=== PATIENT | female | born 1990 | race American Indian/Alaskan Native ===

== ENCOUNTER 2018-12-29 12:26 | Emergency (ER) | payer MEDICAID, OTHER ==
[2018-12-29 12:34] VITALS: BP 133/88
--- NOTE | 2018-12-29 12:38 | Emergency Department Report ---
Blank Doc - Documentation Documentation: 28 y old presents to ED cc of right sided pelvic pain and blood with urine x 2 days ago state LMP 11/14/18, no bleed today states appt with aid tomorrow labs, US ordered. ACC evaluate
--- NOTE | 2018-12-29 13:06 | Emergency Department Report ---
ED HPI - General Chief complaint: Vaginal Bleeding Stated complaint: PREG BLEEDING Time Seen by Provider: 12/29/18 12:32 Source: patient Mode of arrival: Ambulatory Limitations: No Limitations - History of Present Illness Initial comments: This is a 31-year-old female nontoxic, well nourished in appearance, no acute signs of distress presents to the ED with c/o of vaginal bleeding and pelvic pain x1 day. Patient stated yesterday she noticed some spotting this morning x3 occasions and primarily only when she wipes after the restroom. P atient denies any abdominal pain. Patient denies any vaginal discharge or foul odor. Patient denies any nausea, vomiting, chest pain, shortness of breathe, fever, chills, headache, stiff neck, numbness, tingling. Patient denies any urinary symptoms. Patient denies any allergies or PMH. MD Complaint: vaginal bleeding, other (pelvic pain) -: days(s) (1) Location: pelvis Radiation: none Severity: mild Severity scale (0 -10): 3 Quality: cramping, aching Consistency: constant Improves with: none Worsens with: none Associated symptoms: vaginal bleeding. denies: nausea/vomiting, vaginal discharge, abdominal pain, dysuria, headache, vision changes, malaise, dysparuenia, rash, seizure, shortness of breath, syncope, weakness Vaginal bleeding: light :: Yes Pre- care: none - Related Data Home Medications Medication Instructions Recorded Confirmed Last Taken Pnv,Calcium 72/Iron/Folic Acid 1 tab PO DAILY 11/21/15 11/30/15 1 Day Ago [Pnv Plus Multivit Tab] ~11/29/15 Previous Rx's Medication Instructions Recorded Last Taken Type Ibuprofen [Motrin 800 MG tab] 800 mg PO TID PRN #30 tablet 11/30/15 Unknown Rx oxyCODONE /ACETAMINOPHEN [Percocet 1 - 2 tab PO Q4HR PRN #30 tablet 11/30/15 Unknown Rx 5/325 mg] Docusate Sodium [Colace] 100 mg PO BID PRN #60 capsule 12/02/15 Unknown Rx Polyethylene Glycol 3350 [Miralax 1 gm PO BID PRN #14 powd.pack 09/17/18 Unknown Rx 3350] metroNIDAZOLE [Flagyl] 500 mg PO Q12HR 10 Days #20 tab 09/17/18 Unknown Rx Acetaminophen 500 mg PO Q8H PRN #20 tablet 12/29/18 Unknown Rx 21/Iron Fu/Folic Acid 1 each PO DAILY #30 tablet 12/29/18 Unknown Rx [ Complete Caplet] Allergies Allergy/AdvReac Type Severity Reaction Status Date / Time No Known Allergies Allergy Verified 11/21/15 18:00 ED Review of Systems ROS: Stated complaint: PREG BLEEDING Other details as noted in HPI Constitutional: denies: chills, fever Eyes: denies: eye pain, eye discharge, vision change ENT: denies: ear pain, throat pain Respiratory: denies: cough, shortness of breath, wheezing Cardiovascular: denies: chest pain, palpitations Endocrine: no symptoms reported Gastrointestinal: other (pelvic pain). denies: abdominal pain, nausea, diarrhea Genitourinary: abnormal menses. denies: urgency, dysuria, discharge Musculoskeletal: denies: back pain, joint swelling, arthralgia Skin: denies: rash, lesions Neurological: denies: headache, weakness, paresthesias Psychiatric: denies: anxiety, depression Hematological/Lymphatic: denies: easy bleeding, easy bruising ED Past Medical Hx - Past Medical History Hx Hypertension: No Hx Congestive Heart Failure: No Hx Diabetes: No Hx Deep Vein Thrombosis: No Hx Renal Disease: No Hx Sickle Cell Disease: No Hx Seizures: No Hx Asthma: Yes (no present meds) Hx COPD: No Hx HIV: No - Surgical History Past Surgical History?: Yes Additional Surgical History: c section X 3 - Social History Smoking Status: Former Smoker Substance Use Type: None - Medications Home Medications: Home Medications Medication Instructions Recorded Confirmed Last Taken Type Pnv,Calcium 72/Iron/Folic Acid 1 tab PO DAILY 11/21/15 11/30/15 1 Day Ago History [Pnv Plus Multivit Tab] ~11/29/15 Ibuprofen [Motrin 800 MG tab] 800 mg PO TID PRN #30 tablet 11/30/15 Unknown Rx oxyCODONE /ACETAMINOPHEN [Percocet 1 - 2 tab PO Q4HR PRN #30 tablet 11/30/15 Unknown Rx 5/325 mg] Docusate Sodium [Colace] 100 mg PO BID PRN #60 capsule 12/02/15 Unknown Rx Polyethylene Glycol 3350 [Miralax 1 gm PO BID PRN #14 powd.pack 09/17/18 Unknown Rx 3350] metroNIDAZOLE [Flagyl] 500 mg PO Q12HR 10 Days #20 tab 09/17/18 Unknown Rx Acetaminophen 500 mg PO Q8H PRN #20 tablet 12/29/18 Unknown Rx 21/Iron Fu/Folic Acid 1 each PO DAILY #30 tablet 12/29/18 Unknown Rx [ Complete Caplet] ED Physical Exam - General Limitations: No Limitations General appearance: alert, in no apparent distress - Head Head exam: Present: atraumatic, normocephalic - Eye Eye exam: Present: normal appearance - Neck Neck exam: Present: normal inspection, full ROM - Respiratory Respiratory exam: Present: normal lung sounds bilaterally. Absent: respiratory distress, wheezes, rales, rhonchi, stridor, chest wall tenderness, accessory muscle use, decreased breath sounds, prolonged expiratory - Cardiovascular Cardiovascular Exam: Present: regular rate, normal rhythm, normal heart sounds. Absent: bradycardia, tachycardia, irregular rhythm, systolic murmur, diastolic murmur, rubs, gallop - GI/Abdominal GI/Abdominal exam: Present: soft, normal bowel sounds. Absent: distended, tenderness, guarding, rebound, rigid, diminished bowel sounds - Extremities Exam Extremities exam: Present: normal inspection, full ROM - Back Exam Back exam: Present: normal inspection, full ROM - Neurological Exam Neurological exam: Present: alert, oriented X3 - Psychiatric Psychiatric exam: Present: normal affect, normal mood - Skin Skin exam: Present: warm, dry, intact, normal color. Absent: rash ED Course Vital Signs 12/29/18 12:32 Temperature 97.9 F Pulse Rate 87 Respiratory 18 Rate Blood Pressure 133/88 O2 Sat by Pulse 99 Oximetry - Reevaluation(s) Reevaluation #1: 12/29/18 13:31 Patient is speaking in full sentences with no signs of distress noted. - Consultations Consultation #1: 12/29/18 15:21 Patient has been consulted with Keira Simsbuggy ladle tender [place] [facility] [place] about patient history, physical exam, and anti-M anybodies and stated patient can be discharged with follow-up. ED Medical Decision Making - Lab Data Result diagrams: 12/29/18 12:59 - Medical Decision Making This is a 28-year-old female presents with threatened miscarriage. Patient is stable and was examined by me. Normal abdominal exam. US OB obtained and dictated by the radiologist. Ua obtained. Quantative serum test obtained. Patient notified of the US report with no questions noted by the patient. Patient was instructed f/u with [facility] in 2 days to follow up with a [facility] or to emergency room for a reevaluation of serum quantative test with possible ultrasound. RH factor positive. Labs within normal limits. Patient was given strict precautions and education on ectopic . At time of discharge, the patient does not seem toxic or ill in appearance. No acute signs of distress noted. Patient agrees to discharge treatment plan of care. No further questions noted by the patient. Critical care attestation.: If time is entered above; I have spent that time in minutes in the direct care of this critically ill patient, excluding procedure time. ED Disposition Clinical Impression: Threatened miscarriage Disposition: DC- TO HOME OR SELFCARE Is pt being admited?: No Does the pt Need Aspirin: No Condition: Stable Instructions: Threatened Miscarriage (ED) Additional Instructions: Follow-up with a OBGYN doctor in 2 days or if symptoms worsen and continue return to emergency room as soon as possible. Prescriptions: Acetaminophen 500 mg PO Q8H PRN #20 tablet PRN Reason: Pain , Severe (7-10) 21/Iron Fu/Folic Acid [ Complete Caplet] 1 each PO DAILY #30 tablet Referrals: PRIMARY CAREMD [Primary Care Provider] - 3-5 Days TERESA VENTURA MD [Staff Physician] - 3-5 Days [facility] [Provider Group] - 3-5 Days Forms: Work/School Release Form(ED)
[2018-12-29 13:35] LABS: Basophils # (Auto) 0.1 K/mm3 (0.0-0.1); Basophils % (Auto) 0.9 % (0.0-1.8); Eosinophils # (Auto) 0.3 K/mm3 (0.0-0.4); Eosinophils % (Auto) 3.9 % (0.0-4.3); Hematocrit 37.4 % (30.3-42.9); Hemoglobin 12.4 gm/dl (10.1-14.3); Lymphocytes # (Auto) 2.1 K/mm3 (1.2-5.4); Lymphocytes % (Auto) 27.2 % (13.4-35.0); Mean Corpuscular HGB Conc 33 % (30-34); Mean Corpuscular Volume 81 fl (79-97); Monocytes # (Auto) 0.7 K/mm3 (0.0-0.8); Platelet Count 355 K/mm3 (140-440); Red Blood Count 4.64 M/mm3 (3.65-5.03)
[2018-12-29 13:45] LABS: Bilirubin,Urine NEG (Negative); Blood,Urine NEG (Negative); Color,Urine Yellow (Yellow); Mucus,Urine 1+ /HPF; Protein,Urine <15 mg/dL mg/dL (Negative)
--- NOTE | 2018-12-29 15:50 | Ultrasound Report ---
PROCEDURE: US OB <= 14 WEEKS FETUS HISTORY: pelv pain FINDINGS: Real-time ultrasound of the pelvis was performed by transabdominal and endovaginal techniqu e. These images demonstrate a hypoechoic structure in the endometrium which could represent an early ges tational sac at approximately 5 weeks and 5 days gestational age. No pole is seen. A yolk sac i s probably present. Follow-up ultrasound is recommended as clinically indicated. The right ovary measures 2.3 x 1.9 x 2.0 cm and contains a cyst measuring 1.0 x 0.5 x 1.2 cm. The left ovary measures 3.1 x 1.1 x 2.3 cm and appears unremarkable. IMPRESSION: Hypoechoic structure in endometrium, likely gestational sac, with probable yolk sac. No f etal pole is yet seen. Follow-up ultrasound is recommended Normal ovaries This document is electronically signed by Franck Majano MD., December 29 2018 03:48:45 PM ET
--- NOTE | 2018-12-29 15:51 | Ultrasound Report ---
PROCEDURE: US OB TRANSVAGINAL TECHNIQUE: HISTORY: pelv pain COMPARISONS: FINDINGS: Real-time ultrasound of the pelvis was performed by transabdominal and endovaginal techniqu e. These images demonstrate a hypoechoic structure in the endometrium which could represent an early ges tational sac at approximately 5 weeks and 5 days gestational age. No pole is seen. A yolk sac i s probably present. Follow-up ultrasound is recommended as clinically indicated. The right ovary measures 2.3 x 1.9 x 2.0 cm and contains a cyst measuring 1.0 x 0.5 x 1.2 cm. The left ovary measures 3.1 x 1.1 x 2.3 cm and appears unremarkable. IMPRESSION: Hypoechoic structure in endometrium, likely gestational sac, with probable yolk sac. No f etal pole is yet seen. Follow-up ultrasound is recommended Normal ovaries This document is electronically signed by Franck Majano MD., December 29 2018 03:48:57 PM ET
== END 2018-12-29 16:31 | disposition home or self-care (01) ==
LOC: ED 12:26
DX: O20.0 Threatened abortion (principal); O99.511 Diseases of the respiratory system complicating pregnancy, first trimester; J45.909 Unspecified asthma, uncomplicated; Z87.891 Personal history of nicotine dependence; Z3A.01 Less than 8 weeks gestation of pregnancy
CPT/HCPCS: 36415; 76801; 76817; 81001; 84702; 85025; 86850; 86870; 86900; 86901; 99284

== ENCOUNTER 2019-05-23 09:10 | Outpatient (CLI) | payer MEDICAID ==
[2019-05-23] MEDS ORDERED: LACTATED RINGERS 500 ML IV ONE (09:43)
[2019-05-23] MEDS ORDERED: LACTATED RINGERS 1,000 ML ONE (10:19)
[2019-05-23 10:27] LABS: Bacteria,Urine 2+ /HPF (Negative); Bilirubin,Urine NEG (Negative); Blood,Urine NEG (Negative); Color,Urine Yellow (Yellow); Mucus,Urine 3+ /HPF; Urobilinogen,Urine < 2.0 mg/dL (<2.0)
[2019-05-23] MEDS ORDERED: LACTATED RINGERS 1,000 ML IV ONE (11:00)
[2019-05-23] MEDS ORDERED: VISTARIL PO PRN (12:00)
[2019-05-23 12:10] VITALS: BP 122/75
== END 2019-05-23 12:15 | disposition home or self-care (01) ==
LOC: TRG 09:10
PROVIDERS: ATTEND Obstetrics & Gynecology
DX: O62.9 Abnormality of forces of labor, unspecified (principal); O99.512 Diseases of the respiratory system complicating pregnancy, second trimester; J45.909 Unspecified asthma, uncomplicated; Z3A.26 26 weeks gestation of pregnancy
CPT/HCPCS: 59025; 81001; 96360; J7120; Q0177

== ENCOUNTER 2019-08-14 05:17 | Inpatient (IN) | payer MEDICAID ==
--- NOTE | 2019-08-13 18:51 | History and Physical Report ---
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 of genital herpes: no Rash, Viral, or Febrile illness since last LMP? no Varicella/Chicken Pox Status: Previous Disease Genetic History Congenital Heart Defect: Mom: no Dad: no Geovani Disease: Mom: no Dad: no Thalassemia Mom: no Dad: no Neural Tube Defect Mom: no Dad: no Down's Syndrome Mom: no Dad: no Sammy-Sachs Mom: no Dad: no Sickle Cell Disease/Trait Mom: no Dad: no Hemophilia Mom: no Dad: no Muscular Dystrophy Mom: no Dad: no Cystic Fibrosis Mom: no Dad: no Gemma Chorea Mom: no Dad: no Mental Retardation Mom: no Dad: no Fragile X Mom: no Dad: no Other Genetic/Chromosomal Disorder Mom: no Dad: no Child w/other defect Mom: no Dad: no Enviromental Exposures Xray Exposure: no Medication, drug, or alcohol use since LMP: no Chemical/Other Exposure: no Exposure to Cat Liter: no Hx of Parvovirus (Fifth Disease): no Occupational Exposure to Children: none Active Medications: None Current Allergies (reviewed today): No known allergies Problem # 1: Maternal care for low transverse scar from previous delivery ([id number]) Her updated medication list for this problem includes: Rx 1 Tabs ( vit-fe fumarate-fa tabs) ..... One po q day Consent reviewed and signed . Laparotomy explained to patient. The risks and alternatives for this surgery were reviewed with the patient. She was informed of possible bleeding, infection, injury to bowel, bladder, ureters or other adjacent organs. The patient was instructed/informed the following: The normal length of hospital stay for this procedure. Nothing to eat or drink after midnight the evening prior to surgery. The usual discomforts associated with this procedure were detailed. Proper use of pain medicines was reviewed. Patient was given ample opportunity to have all her questions answered before signing informed consent. Problem # 2: Sterilization counseling (ICD-V25.09) ([id number]) Risks of regret emphasized. Permanent and irreversible condition explained to patient. Pt verbalized understanding. Consent reviewed The risks and alternatives to this surgery were reviewed with the patient. Infection precautions reviewed, pt to call for any signs or symptoms of infection. Patient given ample opportunity to have all her questions answered before signing informed consent. Patient informed of possible bleeding. 1%failure rate emphasized Past History - Obstetrical History Expected Date of Delivery: 08/21/19 Actual Gestation: 38 Week(s) 6 Day(s) : 3 Medications and Allergies Allergies Allergy/AdvReac Type Severity Reaction Status Date / Time No Known Allergies Allergy Verified 11/21/15 18:00 Home Medications Medication Instructions Recorded Confirmed Last Taken Type Pnv,Calcium 72/Iron/Folic Acid 1 tab PO DAILY 11/21/15 11/30/15 1 Day Ago History [Pnv Plus Multivit Tab] ~11/29/15 Ibuprofen [Motrin 800 MG tab] 800 mg PO TID PRN #30 tablet 11/30/15 Unknown Rx oxyCODONE /ACETAMINOPHEN [Percocet 1 - 2 tab PO Q4HR PRN #30 tablet 11/30/15 Unknown Rx 5/325 mg] Docusate Sodium [Colace] 100 mg PO BID PRN #60 capsule 12/02/15 Unknown Rx Polyethylene Glycol 3350 [Miralax 1 gm PO BID PRN #14 powd.pack 09/17/18 Unknown Rx 3350] metroNIDAZOLE [Flagyl] 500 mg PO Q12HR 10 Days #20 tab 09/17/18 Unknown Rx Acetaminophen 500 mg PO Q8H PRN #20 tablet 12/29/18 Unknown Rx 21/Iron Fu/Folic Acid 1 each PO DAILY #30 tablet 12/29/18 Unknown Rx [ Complete Caplet] Active Meds: Active Medications Carboprost Tromethamine (Hemabate) 250 mcg IM ONCE PRN PRN Reason: bleeding Citric Acid/Sodium Citrate (Bicitra) 30 ml PO ONCE ONE Stop: 08/14/19 06:31 Famotidine (Pepcid) 20 mg IV ONCE ONE Stop: 08/14/19 06:31 Oxytocin/Sodium Chloride (Pitocin/Ns 20 Unit/1000ml Drip) 20 units in 1,000 mls @ 0 mls/hr IV TITR BEBA Lactated Ringer's (Lactated Ringers) 1,000 mls @ 2,250 mls/hr IV PREOP BEBA Stop: 08/15/19 05:57 Cefazolin Sodium (Ancef/Sterile Water 2 Gm/20 Ml) 2 gm in 20 mls @ 80 mls/hr IV PREOP NR; Protocol Lidocaine/Prilocaine (Emla) 1 applic TP ONCE PRN PRN Reason: for strickland catheter insertion Methylergonovine Maleate (Methergine) 0.2 mg IM ONCE PRN PRN Reason: Bleeding Metoclopramide HCl (Reglan) 10 mg IV ONCE ONE Stop: 08/14/19 06:31 Misoprostol (Cytotec) 800 mcg TN ONCE PRN PRN Reason: bleeding Results All other labs normal. Assessment and Plan - Patient Problems (1) 39 weeks gestation of Status: Acute (2) Previous section Status: Acute (3) Sterilization Status: Acute
[~2019-08-14 05:17] MED LIST: METHYLERGONOVINE MALEATE 0.2 MG/ML VIAL IM PRN; miSOPROStol 100 MCG TAB PR PRN
[2019-08-14] MEDS ORDERED: ceFAZolin/Water 2 GM/20 ML 2 GM/20 ML SYRINGE IV NR (05:30)
[2019-08-14] MEDS ORDERED: OXYTOCIN 20 UNIT/1000ML DRIP 20 UNITS/1,000 ML BAG IV SCH ×2 (05:30→13:31)
[2019-08-14] MEDS ORDERED: EMLA CREAM 5 GM TP PRN (05:30)
[2019-08-14] MEDS: LACTATED RINGERS 1,000 ML IV SCH ×3 (06:05→12:40)
[2019-08-14] MEDS ORDERED: FAMOTIDINE 20 MG/2 ML INJ IV SCH (06:30)
[2019-08-14] MEDS ORDERED: METOCLOPRAMIDE 10 MG/2 ML INJ IV SCH (06:30)
[2019-08-14] MEDS ORDERED: BICITRA ORAL LIQD 30ML PO ONE (06:30)
[2019-08-14] MEDS ORDERED: CARBOPROST TROMETHAMINE 250 MCG/1 ML INJ IM PRN (07:00)
[2019-08-14 07:20] LABS: Hematocrit 30.6 % (30.3-42.9); Hemoglobin 9.9 gm/dl (10.1-14.3)
[2019-08-14 07:45] LABS: Mean Corpuscular HGB Conc 32 % (30-34); Mean Corpuscular Volume 77 fl (79-97); Platelet Count 218 K/mm3 (140-440); Red Blood Count 3.94 M/mm3 (3.65-5.03); Red Cell Distribution Width 14.5 % (13.2-15.2)
[2019-08-14] MEDS ORDERED: MIDAZOLAM 2 MG/2 ML INJ ONE (08:21)
[2019-08-14] MEDS ORDERED: KETAMINE/STERILE WATER 50 MG/ML SYRINGE ONE ×2 (08:21→09:13)
[2019-08-14] MEDS ORDERED: PHENYLEPHRINE/NS 1,000 MCG/10 ML SYRINGE (OR USE) IV ONE (08:30)
[2019-08-14] MEDS ORDERED: GLYCOPYRROLATE 0.4 MG/2 ML INJ ONE (08:30)
[2019-08-14] MEDS ORDERED: OXYTOCIN 10 UNIT/1 ML INJ ONE ×2 (08:43→08:44)
[2019-08-14] MEDS ORDERED: fentaNYL 100 MCG/2 ML INJ ONE ×2 (08:44→09:10)
[2019-08-14 09:48] LABS: Basophils % (Manual) 0 % (0.0-1.8); Total Cells Counted 100
[2019-08-14 09:49] LABS: Burr Cells Rare; Tear Drop Cells Rare
[2019-08-14 09:50] LABS: Hypochromasia 1+; Platelet Estimate Consistent w Auto
[2019-08-14] MEDS ORDERED: HYDROmorphone 1 MG/1 ML INJ ONE ×2 (09:53)
[2019-08-14] MEDS ORDERED: ONDANSETRON 4 MG/2 ML INJ IV PRN (10:07)
[2019-08-14] MEDS ORDERED: diphenhydrAMINE 50 MG/ML VIAL IV PRN (10:07)
[2019-08-14] MEDS ORDERED: HYDROmorphone 1 MG/1 ML INJ IV PRN (10:07)
--- NOTE | 2019-08-14 10:10 | Anesthesia Consultation ---
Anesthesia Consult and Med Hx Date of service: 08/14/19 - Airway Anesthetic Teeth Evaluation: Poor ROM Head & Neck: Adequate Mental/Hyoid Distance: Adequate Mallampati Class: Class II Intubation Access Assessment: Probably Good - Pulmonary Exam CTA: Yes - Cardiac Exam Cardiac Exam: RRR - Pre-Operative Health Status ASA Pre-Surgery Classification: ASA2 Proposed Anesthetic Plan: Spinal - Pre-Anesthesia Comment Pre-Anesthesia Comments: PSH: CSECTION X 4, NO ANESTHESIA COMPLICATIONS - Pulmonary Hx Smoking: Yes (stop 2018 1-2 cig/day) Hx Asthma: Yes (no present meds) Hx Respiratory Symptoms: No SOB: No COPD: No Home Oxygen Therapy: No Hx Pneumonia: Yes (2nd ) Hx Sleep Apnea: No - Cardiovascular System Hx Hypertension: No Hx Coronary Artery Disease: No Hx Heart Attack/AMI: No Hx Angina: No Hx Percutaneous Transluminal Coronary Angioplasty (PTCA): No Hx Cardia Arrhythmia: No Hx Pacemaker: No Hx Internal Defibrillator: No Hx Valvular Heart Disease: No Hx Heart Murmur: No Hx Peripheral Vascular Disease: No - Central Nervous System Hx Neuromuscular Disorder: No Hx Seizures: No CVA: No Hx Back Pain: No Hx Psychiatric Problems: No - Gastrointestinal Hx Ulcer: No Hx Gastroesophageal Reflux Disease: No - Endocrine Hx Renal Disease: No Hx End Stage Renal Disease: No Hx Cirrhosis: No Hx Liver Disease: No Hx Insulin Dependent Diabetes: No Hx Non-Insulin Dependent Diabetes: No Hx Thyroid Disease: No Hx Hypothyroidism: No Hx Hyperthyroidism: No - Hematic Hx Anemia: No Hx Sickle Cell Disease: No - Other Systems Hx Alcohol Use: No Hx Substance Use: No Hx Cancer: No Hx Obesity: No
--- NOTE | 2019-08-14 10:11 | Post Anesthesia Evaluation ---
- Post Anesthesia Evaluation Patient Participated: Yes Airway Patent: Yes Stable Respiratory Function: Yes Nausea/Vomiting: No Temp > 96.8F: Yes Pain Manageable: Yes Adequeate Hydration: Yes Anesthesia Complications: No Block Receding Appropriately: Yes Patient on Ventilator: No
--- NOTE | 2019-08-14 10:11 | Anesthesia Day of Surgery ---
Anesthesia Day of Surgery - Day of Surgery Patient Examined: Yes Patient H&P Reviewed: Yes Patient is NPO: Yes Beta Blockers: No Cardiac Clearance: No Pulmonary Clearance: No Dylan's Test: N/A
--- NOTE | 2019-08-14 10:24 | Post Operative Note ---
Pre-op diagnosis: IUP@39weeks, desires repeat C/S with sterilization Post-op diagnosis: other (same, extensive adhesions, mild uterine atony) Findings: liveborn, female [id number] 15oz; apg 05/09 Procedure: LTCS w/ (B) salpingectomy for sterilization Anesthesia: spinal Surgeon: LANDY LEMONS Estimated blood loss: other (900mL) Pathology: list (placenta) Specimen disposition: to lab Condition: stable Disposition: PACU
[2019-08-14] MEDS: HYDROmorphone 1 MG/1 ML INJ IV PRN ×2 (12:47→13:41)
[2019-08-14] MEDS ORDERED: PROMETHAZINE 25 MG RECT SUPP PR PRN (13:31)
[2019-08-14] MEDS ORDERED: D5W/LACTATED RINGERS 1,000 ML IV SCH (13:31)
[2019-08-14] MEDS ORDERED: LANOLIN/ZINC/DIMETHICONE (LANSINOH) 7 GM TP PRN (13:31)
[2019-08-14] MEDS ORDERED: ACETAMINOPHEN 650 MG RECT SUPP PR PRN (13:31)
[2019-08-14] MEDS ORDERED: MORPHINE 2 MG/1 ML INJ IV PRN (13:31)
[2019-08-14] MEDS ORDERED: NALOXONE 0.4 MG/1 ML INJ IV PRN (13:31)
[2019-08-14] MEDS ORDERED: ACETAMINOPHEN 325 MG TAB PO PRN (13:31)
[2019-08-14] MEDS ORDERED: WITCH HAZEL/ GLYCERIN PAD TP PRN (13:31)
--- NOTE | 2019-08-14 14:11 | Operative Report ---
Operative Report Operative Report: Date of procedure: 08/14/2019 Pre-operative diagnosis: 1. Intrauterine at 39 weeks 2. Previous delivery desires repeat 3. Desires sterilization by bilateral salpingectomy Post-operative diagnosis: 1. Intrauterine at 39 weeks 2. Previous delivery desires repeat 3. Desires sterilization by bilateral salpingectomy 4. Extensive pelvic adhesions 5. Uterine atony Procedure name(s): 1. Low transverse section 2. Bilateral salpingectomy 3. Lysis of pelvic adhesions Surgeon: Stephanie Powell MD University President: Mimi Marie CST Anesthesia: Spinal EBL: 900 mL Complications: None Findings: Patient with grossly normal uterus tubes and ovaries bilaterally. Female weight 6 lbs. 15 oz. 8 at 1 minute and 9 at 5 minutes Specimen(s): Fallopian tubes and placenta Procedure: Patient was taken to the OR where spinal anesthesia was placed. She was then placed in the left lateral tilt position and prepped and draped in usual sterile fashion. Timeout was performed. Once an appropriate level of anesthesia was noted, Pfannenstiel incision was made and extended to fascia which was incised and extended in the lateral direction. The overlying fascia was sharply dissected away from the underlying rectus muscles in the superior inferior direction. The midline within it bluntly. Dense adhesion of the uterus to the anterior right abdominal pelvic wall was encountered. Adhesion was released with cautery. The large Renee retractor was placed. The vesicouterine fold was incised with blunt dissection bladder flap was created. Bladder blade was placed. Then a transverse incision was made in the lower uterine segment and extended superior lateral direction with finger fractionation. Clear fluid was noted. The infant was delivered from the cephalic position with spontaneous cry and excellent tone, mouth and nose were bulb suctioned and the cord was doubly clamped and cut and was given to the resuscitation team present. [Cord blood was obtained.] The placenta was manually extracted. The uterus was exteriorized and cleaned of any further products of conception and placental tissue. Uterine atony was immediately recognized. She was given Methergine 0.2 mg IM, Pitocin 10 units IM and 30 units of the bolus. Manual uterine massage was performed. With these measures uterine atony resolved. The uterine incision was reapproximated using 0 Vicryl in a running interlocking stitch. Further suture 0 Vicryl in a running interlocking stitch was performed for hemostasis. There was a serosal defect on the uterus that was made hemostatic with 0 Vicryl in a running locking stitch. Once confirmation was obtained the patient proceed with sterilization by salpingectomy, the right tube was grasped with [place] And elevated and salpingectomy was performed. Once hemostasis was noted, the same procedure was performed on the left fallopian tube. Each tube was sent to pathology in separate specimen containers. Hemostasis was obtained with electrocoagulation and 3-0 Vicryl in a [id number] stitch. Once hemostasis was noted the uterus was allowed back in the pelvic cavity. Pelvis is irrigated with warm normal saline. Attention was turned to the adnexa where hemostasis was noted. Tisseel was applied on the operative riley. Surgicel was placed on the incision for hemostasis. Interceed was also placed to prevent adhesions. The bladder blade was removed. The Yesika retractor was removed. Once hemostasis was noted the fascia was reapproximated using 0 Vicryl in a simple running stitch. Once hemostasis was noted skin was reapproximated using 4-0 Vicryl on a Oscar needle in a subcuticular manner. Counts were correct 3. Clear yellow urine was noted to drain into the Lockett bag. Patient tolerated procedure well as taken recovery room in stable condition.
[2019-08-14] MEDS: MORPHINE 4 MG/1 ML INJ IV PRN ×2 (15:51→22:39)
[2019-08-14] MEDS: ceFAZolin/NS 1 GM/50 ML 1 GM/50 ML BAG IV SCH ×2 (15:55→23:50)
[2019-08-14] MEDS: ONDANSETRON 4 MG/2 ML INJ IV PRN ×2 (16:35→22:40)
[2019-08-14] MEDS: oxyCODONE /ACETAMINOPHEN 5-325MG TAB PO PRN (18:06)
[2019-08-14 21:41] LABS: Hematocrit 25.4 % (30.3-42.9); Hemoglobin 8.6 gm/dl (10.1-14.3)
[2019-08-14] MEDS: SIMETHICONE 80 MG CHEW TAB PO PRN (23:33)
[2019-08-15] MEDS: oxyCODONE /ACETAMINOPHEN 5-325MG TAB PO PRN (03:14)
--- NOTE | 2019-08-15 06:23 | Progress Note ---
Assessment and Plan - Patient Problems (1) delivery delivered Onset Date: ~08/14/19 Current Visit: No Status: Acute Plan to address problem: Called by RN that pt is in a level pain that appears exaggerated. Pt was not allowing fundal checks and other physical assessments. Pt refused to sit on the side of the bed. On my arrival pt had a delayed response to my arrival, refused to acknowledge my presence and did not respond to my questions. I did explain to the pt I would need to exam her and assess her abdomen and fundus. Abdomen does appear distended, area pt c/o burning which is above the incision is warm, dry and intact, bowel sounds are minimal, FF well below the umb, Lochia small. Dressing D&I. VSS Pt assisted OOB by myself and the RN. She ambulated to the toilet with minimal struggle, no s/sx of dizziness. Once on the toilet the strickland was removed , 600cc. Pt cleaned up and returned to chair. Will consult with Spoke with . Make pt NPO until she passes flatus and has ambulated more. Subjective - Subjective Date of service: 08/15/19 (Called by RN Pt refusing to move or allow fundal checks) Principal diagnosis: Day # 1 s/p section Patient reports: voiding normally (clear yellow urine) : doing well Objective - Vital Signs Latest vital signs: Vital Signs Temp Pulse Resp BP BP Pulse Ox 08/15/19 01:25 97.9 F 71 20 115/61 96 08/14/19 16:39 97.7 F 54 L 18 113/59 08/14/19 12:54 54 L 99 08/14/19 12:50 97.9 F 54 L 18 113/57 113/57 99 08/14/19 12:49 60 99 08/14/19 12:44 61 98 08/14/19 12:39 60 97 08/14/19 12:35 53 L 102/62 08/14/19 12:34 57 L 97 08/14/19 12:29 58 L 97 08/14/19 12:24 60 97 08/14/19 12:20 59 L 98/62 08/14/19 12:19 55 L 98 08/14/19 12:14 53 L 99 08/14/19 12:09 55 L 98 08/14/19 12:05 50 L 107/69 08/14/19 12:04 55 L 98 08/14/19 11:59 56 L 96 08/14/19 11:54 58 L 97 08/14/19 11:50 50 L 112/70 08/14/19 11:49 52 L 98 08/14/19 11:44 52 L 98 08/14/19 11:40 56 L 80 L 08/14/19 11:39 76 L 08/14/19 11:35 47 L 125/74 08/14/19 11:15 96.8 F L 51 L 18 119/88 100 08/14/19 11:10 51 L 18 118/78 100 08/14/19 11:05 51 L 18 121/84 100 08/14/19 11:00 47 L 18 118/80 100 08/14/19 10:55 48 L 18 126/88 100 08/14/19 10:50 96.8 F L 51 L 18 126/85 100 08/14/19 10:35 50 L 18 119/92 100 08/14/19 10:25 50 L 18 130/90 100 08/14/19 10:20 96.6 F L 48 L 18 129/84 100 08/14/19 10:15 50 L 17 122/85 100 08/14/19 10:11 51 L 18 121/77 100 08/14/19 10:06 52 L 17 119/85 97 08/14/19 10:01 96.6 F L 52 L 16 116/67 97 08/14/19 07:33 69 99 08/14/19 07:28 70 99 08/14/19 07:23 68 98 08/14/19 07:18 73 98 08/14/19 07:13 65 98 08/14/19 07:08 69 98 08/14/19 07:03 67 99 08/14/19 06:58 68 98 08/14/19 06:53 81 99 08/14/19 06:33 98.2 F 08/14/19 06:05 73 98 Intake and Output 08/14/19 08/14/19 08/15/19 14:59 22:59 06:59 Intake Total 2900 530 Output Total 450 Balance 2450 530 Intake: IV 2900 50 ANCEF/NS 1 GM/50 ML 1 gm 50 In 50 ml @ 100 mls/hr IV Q8H [facility]BA Rx#:[id number] Lactated Ringers 1,000 ml 1000 @ 2250 mls/hr IV PREOP [facility] Rx#:[id number] Oral 480 Output: Urine 450 Indwelling 100 Other: Total, Intake Amount 480 Voiding Method Toilet Estimated Blood Loss 900 - Exam Breasts: Present: normal Cardiovascular: Present: Regular rate Lungs: Present: Clear to auscultation Abdomen: Present: distention, tenderness, guarding, abnormal bowel sounds (hypo) Vulva: both: normal Uterus: Present: normal, firm, fundal height below umbilicus Extremities: Present: normal Deep Tendon Reflex Grade: Normal +2 Incision: Present: normal, dry, intact, dressed - Labs Labs: Abnormal lab results 08/14/19 08/14/19 08/14/19 Range/Units 06:05 06:05 21:22 Hgb 9.9 L 8.6 L (10.1-14.3) gm/dl Hct 25.4 L (30.3-42.9) % MCV 77 L (79-97) fl MCH 25 L (28-32) pg Crossmatch See Detail
[2019-08-15] MEDS ORDERED: TETANUS,DIPH,PERTUSS(ACELL) VACCINE 0.5 ML SYRINGE IM ONE (12:00)
[2019-08-15] MEDS: IBUPROFEN 800 MG TAB PO PRN (22:15)
[2019-08-16] MEDS: oxyCODONE /ACETAMINOPHEN 5-325MG TAB PO PRN ×2 (02:15→19:56)
[2019-08-16] MEDS: SIMETHICONE 80 MG CHEW TAB PO PRN ×2 (02:24→15:00)
[2019-08-16] MEDS: PRENATAL VIT27-FE FUMARATE-FOLIC ACID VIT TAB PO SCH (10:00)
[2019-08-16] MEDS: FERROUS SULFATE 325 MG TAB PO SCH (10:00)
--- NOTE | 2019-08-16 12:11 | Progress Note ---
Assessment and Plan Slow return of bowel function however will allow clear liquids today - Patient Problems (1) delivery delivered Onset Date: ~08/14/19 Current Visit: No Status: Acute (2) Sterilization Current Visit: No Status: Acute (3) Previous section Current Visit: No Status: Acute (4) 39 weeks gestation of Current Visit: Yes Status: Acute Subjective - Subjective Date of service: 08/16/19 Principal diagnosis: POD#2 s/p CRC/S with (B) salpingectomy for sterilization Interval history: Past History : 4 Para: 3 Prev : 3 Aborta: 0 Past Medical History: Reviewed history from 07/12/2012 and no changes required: Asthma Past Surgical History: Reviewed history from 11/26/2015 and no changes required: C-sectionx3 Past Medical History Surgery (Non-hair spring cutter): C-sectionx3 Abnormal PAP: negative Social Hx: Patient is single no etoh, no illicit drug use, no tobacco use Infection History Hx of STD: Trich 2008 HIV Risk Eval: low risk Hepatitis B Risk Eval: low risk Partner hx. of genital herpes: no Rash, Viral, or Febrile illness since last LMP? no Varicella/Chicken Pox Status: Previous Disease Genetic History Congenital Heart Defect: Mom: no Dad: no Geovani Disease: Mom: no Dad: no Thalassemia Mom: no Dad: no Neural Tube Defect Mom: no Dad: no Down's Syndrome Mom: no Dad: no Sammy-Sachs Mom: no Dad: no Sickle Cell Disease/Trait Mom: no Dad: no Hemophilia Mom: no Dad: no Muscular Dystrophy Mom: no Dad: no Cystic Fibrosis Mom: no Dad: no Dubois Chorea Mom: no Dad: no Mental Retardation Mom: no Dad: no Fragile X Mom: no Dad: no Other Genetic/Chromosomal Disorder Mom: no Dad: no Child w/other defect Mom: no Dad: no Enviromental Exposures Xray Exposure: no Medication, drug, or alcohol use since LMP: no Chemical/Other Exposure: no Exposure to Cat Liter: no Hx of Parvovirus (Fifth Disease): no Occupational Exposure to Children: none Active Medications: None Current Allergies (reviewed today): No known allergies Problem # 1: Maternal care for low transverse scar from previous delivery ([id number]) Her updated medication list for this problem includes: Rx 1 Tabs ( vit-fe fumarate-fa tabs) ..... One po q day Consent reviewed and signed . Laparotomy explained to patient. The risks and alternatives for this surgery were reviewed with the patient. She was informed of possible bleeding, infection, injury to bowel, bladder, ureters or other adjacent organs. The patient was instructed/informed the following: The normal length of hospital stay for this procedure. Nothing to eat or drink after midnight the evening prior to surgery. The usual discomforts associated with this procedure were detailed. Proper use of pain medicines was reviewed. Patient was given ample opportunity to have all her questions answered before signing informed consent. Problem # 2: Sterilization counseling (ICD-V25.09) ([id number]) Risks of regret emphasized. Permanent and irreversible condition explained to patient. Pt verbalized understanding. Consent reviewed The risks and alternatives to this surgery were reviewed with the patient. Infection precautions reviewed, pt to call for any signs or symptoms of infection. Patient given ample opportunity to have all her questions answered before signing informed consent. Patient informed of possible bleeding. 1%failure rate emphasized Patient reports: appetite normal (desires to eat), voiding normally, pain well controlled, ambulating normally, no flatus, no nauseated Objective - Vital Signs Latest vital signs: Vital Signs Temp Pulse Resp BP BP Pulse Ox 08/16/19 08:50 97.8 F 60 18 102/59 98 08/16/19 00:33 98.9 F 72 18 123/76 95 08/15/19 17:55 98.1 F 59 L 18 120/69 Intake and Output 08/15/19 08/16/19 08/16/19 22:59 06:59 14:59 Intake Total 680 360 Output Total 500 Balance 180 360 Intake: Oral 680 Intake, Free Water 360 Output: Urine 500 Void 500 Other: Total, Intake Amount 480 Total, Output Amount 500 - Exam Breasts: Present: normal Cardiovascular: Present: Regular rate Lungs: Present: Clear to auscultation, Normal air movement Abdomen: Present: soft, distention, normal bowel sounds. Absent: tenderness Uterus: Present: fundal height below umbilicus. Absent: tenderness Extremities: Present: normal Incision: Present: normal, dry, intact
[2019-08-16] MEDS: MAGNESIUM HYDROXIDE (MOM) ORAL LIQD UDC PO PRN (19:55)
[2019-08-17] MEDS: oxyCODONE /ACETAMINOPHEN 5-325MG TAB PO PRN (02:46)
[2019-08-17] MEDS: IBUPROFEN 800 MG TAB PO PRN (06:08)
[2019-08-17] MEDS: MAGNESIUM HYDROXIDE (MOM) ORAL LIQD UDC PO PRN (06:08)
[2019-08-17] MEDS: PRENATAL VIT27-FE FUMARATE-FOLIC ACID VIT TAB PO SCH (10:39)
[2019-08-17] MEDS: FERROUS SULFATE 325 MG TAB PO SCH (10:39)
--- NOTE | 2019-08-17 12:21 | Discharge Summary ---
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 Grader [CONS] Routine Reason For Exam: Primary care physician: MONTY FOWLER Hospitalization Condition: Good Procedures: RC/S with (B) salpingectomy, TOMMIE Hospital course: Patient had slow return of bowel function, she had BM today, minimal bleeding, desires d/c home Disposition: TO HOME OR SELFCARE - Discharge Diagnoses (1) delivery delivered Status: Acute Comment: pt to f/u in office 12-08-15 (2) Sterilization Status: Acute (3) Previous section Status: Acute (4) 39 weeks gestation of Status: Acute Core Measure Documentation - Palliative Care Palliative Care/ Comfort Measures: Not Applicable - Core Measures Any of the following diagnoses?: none Exam - Constitutional Vitals: Temp Pulse Resp BP Pulse Ox 98.0 F 65 18 105/70 98 08/17/19 08:37 08/17/19 08:37 08/17/19 08:37 08/17/19 08:37 08/17/19 08:37 General appearance: Present: no acute distress, well-nourished - Respiratory Respiratory effort: normal - Extremities Extremity abnormal: edema (1+) - Abdominal General gastrointestinal: Present: soft, non-tender, non-distended, normal bowel sounds Female genitourinary: Present: deferred - Integumentary Integumentary: Present: clear, warm, dry (Breast normal no engorgement) - Musculoskeletal Musculoskeletal: strength equal bilaterally - Psychiatric Psychiatric: appropriate mood/affect, intact judgment & insight, memory intact, cooperative - Neurologic Neurologic: CNII-XII intact Plan Activity: other (no sex, no driving) Weight Bearing Status: Full Weight Bearing Diet: regular Wound: open to air, keep clean and dry Special Instructions: no heavy lifting (greater than 25lbs) Care Plan Goals: see [facility] discharge instructions Plan of Treatment: see [facility] discharge instructions Health Concerns: none Follow up with: MONTY FOWLER MD [Primary Care Provider] - (As scheduled) Forms: [facility] Discharge Summary Prescriptions: Ibuprofen [Motrin 800 MG tab] 800 mg PO TID PRN #30 tablet PRN Reason: Pain oxyCODONE /ACETAMINOPHEN [Percocet 5/325 mg] 1 - 2 tab PO Q4HR PRN #20 tablet PRN Reason: Pain
[2019-08-17 14:56] VITALS: BP 120/77
== END 2019-08-17 15:10 | disposition home or self-care (01) | DRG 765 ==
LOC: APU 05:17 → OB 13:17
PROVIDERS: ADMIT Obstetrics & Gynecology; ATTEND Obstetrics & Gynecology
PROC: 10D00Z1 Extraction of Products of Conception, Low, Open Approach (ICD-10-PCS; principal; 2019-08-14)
PROC: 0UT70ZZ Resection of Bilateral Fallopian Tubes, Open Approach (ICD-10-PCS; 2019-08-14)
PROC: 0DNW0ZZ Release Peritoneum, Open Approach (ICD-10-PCS; 2019-08-14)
PROC: 3E0234Z Introduction of Serum, Toxoid and Vaccine into Muscle, Percutaneous Approach (ICD-10-PCS; 2019-08-15)
DX: O34.211 Maternal care for low transverse scar from previous cesarean delivery (principal); D62 Acute posthemorrhagic anemia; O99.52 Diseases of the respiratory system complicating childbirth; J45.909 Unspecified asthma, uncomplicated; O62.2 Other uterine inertia; O99.89 Other specified diseases and conditions complicating pregnancy, childbirth and the puerperium; N73.6 Female pelvic peritoneal adhesions (postinfective); Z30.09 Encounter for other general counseling and advice on contraception; Z37.0 Single live birth; Z3A.39 39 weeks gestation of pregnancy; Z87.891 Personal history of nicotine dependence; Z87.01 Personal history of pneumonia (recurrent); Z79.899 Other long term (current) drug therapy; Z30.2 Encounter for sterilization; Z23 Encounter for immunization; O99.02 Anemia complicating childbirth
CPT/HCPCS: 36415; 85007; 85014; 85018; 85025; 86592; 86850; 86870; 86900; 86901; 86922; 88302; 88307; G0378; C1765; C9250; J0690; J1170; J2250; J2270; J2370; J2405; J2590; J2765; J3010; J7120; J7121

== ENCOUNTER 2020-11-06 10:53 | Emergency (ER) | payer MEDICAID ==
[2020-11-06] MEDS ORDERED: ONDANSETRON 4 MG/2 ML INJ IV ONE (11:20)
[2020-11-06] MEDS ORDERED: MORPHINE 4 MG/1 ML INJ IV ONE (11:20)
[2020-11-06] MEDS ORDERED: PANTOPRAZOLE 40 MG INJ IV ONE (11:20)
--- NOTE | 2020-11-06 11:46 | Emergency Department Report ---
ED Abdominal Pain HPI - General Chief Complaint: Abdominal Pain Stated Complaint: ABD PAINS Time Seen by Provider: 11/06/20 11:20 Source: patient Mode of arrival: Ambulatory Limitations: No Limitations - History of Present Illness Initial Comments: pt is a 30 yo female who presents to the ED with c/o generalized abd pain that began 3 days ago. she has associated nausea and feels like she needs to vomit but nothing comes up. she states her pain is worse with eating and drinking. she denies any vomiting, diarrhea, fever, chills, urinary symptoms. she states she has been having normal BMs. she denies any hematochezia, hemtaemesis, melena. no pmhx. no history of PUD or ulcers. no allergies to meds. past abdominal surgical history of c-sections and tubal ligation. - Related Data Home Medications Medication Instructions Recorded Confirmed Last Taken Pnv,Calcium 72/Iron/Folic Acid 1 tab PO DAILY 11/21/15 08/17/19 1 Day Ago [Pnv Plus Multivit Tab] ~11/29/15 Previous Rx's Medication Instructions Recorded Last Taken Type Ibuprofen [Motrin 800 MG tab] 800 mg PO TID PRN #30 tablet 11/30/15 Unknown Rx oxyCODONE /ACETAMINOPHEN [Percocet 1 - 2 tab PO Q4HR PRN #30 tablet 11/30/15 Unknown Rx 5/325 mg] Docusate Sodium [Colace] 100 mg PO BID PRN #60 capsule 12/02/15 Unknown Rx metroNIDAZOLE [Flagyl] 500 mg PO Q12HR 10 Days #20 tab 09/17/18 Unknown Rx polyethylene glycoL 3350 [Miralax 1 gm PO BID PRN #14 powd.pack 09/17/18 Unknown Rx 3350] Acetaminophen 500 mg PO Q8H PRN #20 tablet 12/29/18 Unknown Rx 21/Iron Fu/Folic Acid 1 each PO DAILY #30 tablet 12/29/18 Unknown Rx [ Complete Caplet] Ibuprofen [Motrin 800 MG tab] 800 mg PO TID PRN #30 tablet 08/14/19 Unknown Rx oxyCODONE /ACETAMINOPHEN [Percocet 1 - 2 tab PO Q4HR PRN #20 tablet 08/14/19 Unknown Rx 5/325 mg] Albuterol Sulfate [Proventil Hfa] 1 - 2 puff IH Q6H PRN #1 hfa.aer.ad 05/11/20 Unknown Rx Azithromycin [Zithromax Z-MICHELLE] 250 mg PO DAILY #6 tablet 05/11/20 Unknown Rx Benzonatate [Tessalon Perles] 100 mg PO Q8HR #30 capsule 05/11/20 Unknown Rx Cetirizine HCl [Zyrtec 10mg tab] 10 mg PO DAILY #30 tablet 05/11/20 Unknown Rx Ibuprofen [Motrin] 600 mg PO Q8H PRN #24 tablet 05/11/20 Unknown Rx Ondansetron [Zofran Odt] 4 mg PO Q6HR PRN #15 tab.rapdis 05/11/20 Unknown Rx methylPREDNISolone [Medrol 4MG 4 mg PO DAILY #21 tab.ds.pk 05/11/20 Unknown Rx DOSEPAK (21 tabs)] Famotidine [Pepcid] 40 mg PO QHS #30 tablet 11/06/20 Unknown Rx Ondansetron [Zofran Odt] 4 mg PO Q8HR PRN #12 tab.rapdis 11/06/20 Unknown Rx Sucralfate [Carafate] 1 gm PO ACHS 7 Days #21 tablet 11/06/20 Unknown Rx Allergies Allergy/AdvReac Type Severity Reaction Status Date / Time No Known Allergies Allergy Verified 05/11/20 18:39 ED Review of Systems ROS: Stated complaint: ABD PAINS Other details as noted in HPI Comment: All other systems reviewed and negative ED Past Medical Hx - Past Medical History Previous Medical History?: Yes Hx Hypertension: No Hx Heart Attack/AMI: No Hx Congestive Heart Failure: No Hx Diabetes: No Hx Deep Vein Thrombosis: No Hx Liver Disease: No Hx Renal Disease: No Hx Sickle Cell Disease: No Hx Seizures: No Hx Asthma: Yes (no present meds) Hx COPD: No Hx HIV: No - Surgical History Hx Pacemaker: No Hx Internal Defibrillator: No Additional Surgical History: c section X 4 - Social History Smoking Status: Current Some Day Smoker Substance Use Type: None - Medications Home Medications: Home Medications Medication Instructions Recorded Confirmed Last Taken Type Pnv,Calcium 72/Iron/Folic Acid 1 tab PO DAILY 11/21/15 08/17/19 1 Day Ago Hi story [Pnv Plus Multivit Tab] ~11/29/15 Ibuprofen [Motrin 800 MG tab] 800 mg PO TID PRN #30 tablet 11/30/15 08/17/19 Unknown Rx oxyCODONE /ACETAMINOPHEN [Percocet 1 - 2 tab PO Q4HR PRN #30 tablet 11/30/15 08/17/19 Unknown Rx 5/325 mg] Docusate Sodium [Colace] 100 mg PO BID PRN #60 capsule 12/02/15 08/17/19 Unknown Rx metroNIDAZOLE [Flagyl] 500 mg PO Q12HR 10 Days #20 tab 09/17/18 08/17/19 Unknown Rx polyethylene glycoL 3350 [Miralax 1 gm PO BID PRN #14 powd.pack 09/17/18 08/17/19 Unknown Rx 3350] Acetaminophen 500 mg PO Q8H PRN #20 tablet 12/29/18 08/17/19 Unknown Rx 21/Iron Fu/Folic Acid 1 each PO DAILY #30 tablet 12/29/18 08/17/19 Unknown Rx [ Complete Caplet] Ibuprofen [Motrin 800 MG tab] 800 mg PO TID PRN #30 tablet 08/14/19 Unknown Rx oxyCODONE /ACETAMINOPHEN [Percocet 1 - 2 tab PO Q4HR PRN #20 tablet 08/14/19 Unknown Rx 5/325 mg] Albuterol Sulfate [Proventil Hfa] 1 - 2 puff IH Q6H PRN #1 hfa.aer.ad 05/11/20 Unknown Rx Azithromycin [Zithromax Z-MICHELLE] 250 mg PO DAILY #6 tablet 05/11/20 Unknown Rx Benzonatate [Tessalon Perles] 100 mg PO Q8HR #30 capsule 05/11/20 Unknown Rx Cetirizine HCl [Zyrtec 10mg tab] 10 mg PO DAILY #30 tablet 05/11/20 Unknown Rx Ibuprofen [Motrin] 600 mg PO Q8H PRN #24 tablet 05/11/20 Unknown Rx Ondansetron [Zofran Odt] 4 mg PO Q6HR PRN #15 tab.rapdis 05/11/20 Unknown Rx methylPREDNISolone [Medrol 4MG 4 mg PO DAILY #21 tab.ds.pk 05/11/20 Unknown Rx DOSEPAK (21 tabs)] Famotidine [Pepcid] 40 mg PO QHS #30 tablet 11/06/20 Unknown Rx Ondansetron [Zofran Odt] 4 mg PO Q8HR PRN #12 tab.rapdis 11/06/20 Unknown Rx Sucralfate [Carafate] 1 gm PO ACHS 7 Days #21 tablet 11/06/20 Unknown Rx ED Physical Exam - General Limitations: No Limitations General appearance: alert, in no apparent distress - Head Head exam: Present: atraumatic, normocephalic - Eye Eye exam: Present: normal appearance - ENT ENT exam: Present: mucous membranes moist - Respiratory Respiratory exam: Present: normal lung sounds bilaterally. Absent: respiratory distress, wheezes, rales, rhonchi, stridor, chest wall tenderness, accessory muscle use, decreased breath sounds, prolonged expiratory - Cardiovascular Cardiovascular Exam: Present: regular rate, normal rhythm, normal heart sounds. Absent: systolic murmur, diastolic murmur, rubs, gallop - GI/Abdominal GI/Abdominal exam: Present: soft, tenderness (generalized upper abd pain, RLQ abd pain), normal bowel sounds. Absent: distended, guarding, rebound, rigid - Neurological Exam Neurological exam: Present: alert, oriented X3 - Psychiatric Psychiatric exam: Present: normal affect, normal mood - Skin Skin exam: Present: warm, dry, intact ED Course Vital Signs 11/06/20 11:11 Temperature 99.1 F Pulse Rate 64 Respiratory 20 Rate Blood Pressure 120/74 O2 Sat by Pulse 98 Oximetry ED Medical Decision Making - Lab Data Result diagrams: 11/06/20 11:59 11/06/20 11:59 Lab Results 11/06/20 11/06/20 11/06/20 Range/Units 11:59 11:59 11:59 WBC 5.1 (4.5-11.0) K/mm3 RBC 4.83 (3.65-5.03) M/mm3 Hgb 11.6 (10.1-14.3) gm/dl Hct 35.9 (30.3-42.9) % MCV 74 L (79-97) fl MCH 24 L (28-32) pg MCHC 32 (30-34) % RDW 18.0 H (13.2-15.2) % Plt Count 353 (140-440) K/mm3 Lymph % (Auto) 26.7 (13.4-35.0) % Walton % (Auto) 8.2 H (0.0-7.3) % Eos % (Auto) 2.5 (0.0-4.3) % Baso % (Auto) 0.8 (0.0-1.8) % Lymph # (Auto) 1.4 (1.2-5.4) K/mm3 Walton # (Auto) 0.4 (0.0-0.8) K/mm3 Eos # (Auto) 0.1 (0.0-0.4) K/mm3 Baso # (Auto) 0.0 (0.0-0.1) K/mm3 Seg Neutrophils % 61.8 (40.0-70.0) % Seg Neutrophils # 3.2 (1.8-7.7) K/mm3 Sodium 138 (137-145) mmol/L Potassium 3.8 (3.6-5.0) mmol/L Chloride 105.8 (98-107) mmol/L Carbon Dioxide 21 L (22-30) mmol/L Anion Gap 15 mmol/L BUN 8 (7-17) mg/dL Creatinine 0.6 (0.6-1.2) mg/dL Estimated GFR > 60 ml/min BUN/Creatinine Ratio 13 % Glucose 87 (65-100) mg/dL Calcium 8.9 (8.4-10.2) mg/dL Total Bilirubin 0.40 (0.1-1.2) mg/dL AST 12 (5-40) units/L ALT 9 (7-56) units/L Alkaline Phosphatase 67 (35-129) units/L Total Protein 7.3 (6.3-8.2) g/dL Albumin 4.2 (3.9-5) g/dL Albumin/Globulin Ratio 1.4 % Lipase 20 (13-60) units/L HCG, Qual Negative (Negative) Urine Color (Yellow) Urine Turbidity (Clear) Urine pH (5.0-7.0) Ur Specific Union (1.003-1.030) Urine Protein (Negative) mg/dL Urine Glucose (UA) (Negative) mg/dL Urine Ketones (Negative) mg/dL Urine Blood (Negative) Urine Nitrite (Negative) Urine Bilirubin (Negative) Urine Urobilinogen (<2.0) mg/dL Ur Leukocyte Esterase (Negative) Urine WBC (Auto) (0.0-6.0) /HPF Urine RBC (Auto) (0.0-6.0) /HPF U Epithel Cells (Auto) (0-13.0) /HPF Hyaline Casts /LPF Urine Mucus /HPF 11/06/20 Range/Units Unknown WBC (4.5-11.0) K/mm3 RBC (3.65-5.03) M/mm3 Hgb (10.1-14.3) gm/dl Hct (30.3-42.9) % MCV (79-97) fl MCH (28-32) pg MCHC (30-34) % RDW (13.2-15.2) % Plt Count (140-440) K/mm3 Lymph % (Auto) (13.4-35.0) % Walton % (Auto) (0.0-7.3) % Eos % (Auto) (0.0-4.3) % Baso % (Auto) (0.0-1.8) % Lymph # (Auto) (1.2-5.4) K/mm3 Walton # (Auto) (0.0-0.8) K/mm3 Eos # (Auto) (0.0-0.4) K/mm3 Baso # (Auto) (0.0-0.1) K/mm3 Seg Neutrophils % (40.0-70.0) % Seg Neutrophils # (1.8-7.7) K/mm3 Sodium (137-145) mmol/L Potassium (3.6-5.0) mmol/L Chloride (98-107) mmol/L Carbon Dioxide (22-30) mmol/L Anion Gap mmol/L BUN (7-17) mg/dL Creatinine (0.6-1.2) mg/dL Estimated GFR ml/min BUN/Creatinine Ratio % Glucose (65-100) mg/dL Calcium (8.4-10.2) mg/dL Total Bilirubin (0.1-1.2) mg/dL AST (5-40) units/L ALT (7-56) units/L Alkaline Phosphatase (35-129) units/L Total Protein (6.3-8.2) g/dL Albumin (3.9-5) g/dL Albumin/Globulin Ratio % Lipase (13-60) units/L HCG, Qual (Negative) Urine Color Yellow (Yellow) Urine Turbidity Slightly-cloudy (Clear) Urine pH 5.0 (5.0-7.0) Ur Specific Union 1.021 (1.003-1.030) Urine Protein <15 mg/dl (Negative) mg/dL Urine Glucose (UA) Neg (Negative) mg/dL Urine Ketones Tr (Negative) mg/dL Urine Blood Neg (Negative) Urine Nitrite Neg (Negative) Urine Bilirubin Neg (Negative) Urine Urobilinogen < 2.0 (<2.0) mg/dL Ur Leukocyte Esterase Neg (Negative) Urine WBC (Auto) 3.0 (0.0-6.0) /HPF Urine RBC (Auto) 2.0 (0.0-6.0) /HPF U Epithel Cells (Auto) 13.0 (0-13.0) /HPF Hyaline Casts 1 /LPF Urine Mucus Few /HPF - Radiology Data Radiology results: report reviewed Ordering Physician: MARIANA MCKEON Date of Service: 11/06/20 Procedure(s): CT abdomen pelvis w con Accession Number(s): [id number] cc: MARIANA MCKEON CT abdomen pelvis w con INDICATION / CLINICAL INFORMATION: Right lower quadrant pain, nausea, upper abdominal pain.. TECHNIQUE: Axial CT imaging of abdomen and pelvis was obtained with IV contrast. Coronal and sagittal reformatted imaging obtained and reviewed. All CT scans at this location are performed using CT dose reduction for ALARA by means of automated exposure control. COMPARISON: None available. FINDINGS: CT abdomen with contrast demonstrates normal appearance of the liver, spleen, pancreas, kidneys, and adrenal glands. Gallbladder is present and is grossly unremarkable. No hydronephrosis or renal mass present. CT pelvis with contrast demonstrates a normal appendix in the right mid abdomen in a retrocecal position. There is an enhancing cyst within the right ovary measuring 2.9 cm. The appearance is most consistent with corpus luteal cyst from recent ovulation. Trace amount of free fluid is present in the posterior pelvis. Additionally, there are mildly prominent fluid-filled small bowel loops within the abdomen and pelvis with an appearance most suggestive of enteritis, if clinical symptoms correlate. The remainder of the GI tract is unremarkable. Visualized lung bases are clear. No significant acute osseous abnormality noted. IMPRESSION: 1. Slightly prominent fluid-filled small bowel loops. The appearance is most suggestive of enteritis. Please correlate with clinical presentation and symptoms. 2. 2.9 cm right ovarian cyst with rim enhancement. This appearance is typical for corpus luteal cyst due to recent ovulation. Small amount of associated free fluid. 3. Normal appearance of the appendix. Signer Name: Amarilys Blanco MD Signed: 11/06/2020 1:51 PM Workstation Name: [id number] Transcribed By: Dictated By: Amarilys Blanco MD Electronically Authenticated By: Amarilys Blanco MD Signed Date/Time: 11/06/20 1351 DD/ 1347 TD/TT: - Medical Decision Making pt is a 30 yo female who presents to the ED with c/o generalized abd pain that began 3 days ago. she has associated nausea and feels like she needs to vomit but nothing comes up. she states her pain is worse with eating and drinking. she denies any vomiting, diarrhea, fever, chills, urinary symptoms. she states she has been having normal BMs. she denies any hematochezia, hemtaemesis, melena. no pmhx. no history of PUD or ulcers. no allergies to meds. past abdominal surgical history of c-sections and tubal ligation. Vitals are normal. On exam: Generalized upper abdominal ttp, right lower quadrant tenderness palpation, no guarding, no rebound, no rigidity, normal bowel sounds, no peritoneal signs. Labs are normal. UA is within normal limits. CT abdomen pelvis with IV contrast 1. Slightly prominent fluid-filled small bowel loops. The appearance is most suggestive of enteritis. Please correlate with clinical presentation and symptoms. 2. 2.9 cm right ovarian cyst with rim enhancement. This appearance is typical for corpus luteal cyst due to recent ovulation. Small amount of associated free fluid. 3. Normal appearance of the appendix. Patient given medications on the emergency department and symptoms improved. Discussed all results with patient and answered questions. Discussed the importance of primary care and [employer] MACHINE OPERATOR follow-up. Patient given prescription for Pepcid, Carafate, Zofran. Advised patient please take medication as prescribed. increase your water intake. eat a bland liquid diet and slowly advance your diet as tolerated. follow up with a primary care doctor. follow up with an [employer] WH[employer] MACHINE OPERATOR. return to the emergency room for any new or worsening symptoms. Critical care attestation.: If time is entered above; I have spent that time in minutes in the direct care of this critically ill patient, excluding procedure time. ED Disposition Clinical Impression: Nausea, Enteritis Abdominal pain Qualifiers: Abdominal location: generalized Qualified Code(s): R10.84 - Generalized abdominal pain Ovarian cyst Qualifiers: Laterality: right Qualified Code(s): N83.201 - Unspecified ovarian cyst, right side Disposition: TO HOME OR SELFCARE Is pt being admited?: No Does the pt Need Aspirin: No Condition: Stable Instructions: Viral Gastroenteritis, Adult, Ovarian Cyst, [id number], Abdominal Pain (ED) Additional Instructions: please take medication as prescribed. increase your water intake. eat a bland liquid diet and slowly advance your diet as tolerated. follow up with a primary care doctor. follow up with an TIN WHIZ MACHINE OPERATOR. return to the emergency room for any new or worsening symptoms. Prescriptions: Famotidine [Pepcid] 40 mg PO QHS #30 tablet Sucralfate [Carafate] 1 gm PO ACHS 7 Days #21 tablet Ondansetron [Zofran Odt] 4 mg PO Q8HR PRN #12 tab.rapdis PRN Reason: nausea/vomiting Referrals: JONAS MORALES NP [Primary Care Provider] - 2-3 Days HALEY TARANGO MD [Staff Physician] - 2-3 Days Forms: Work/School Release Form(ED) Time of Disposition: 14:59 Print Language: MEXICAN
[2020-11-06 12:00] VITALS: BP 120/74
[2020-11-06 12:40] LABS: Basophils % (Auto) 0.8 % (0.0-1.8); Eosinophils # (Auto) 0.1 K/mm3 (0.0-0.4); Eosinophils % (Auto) 2.5 % (0.0-4.3); Hematocrit 35.9 % (30.3-42.9); Hemoglobin 11.6 gm/dl (10.1-14.3); Lymphocytes # (Auto) 1.4 K/mm3 (1.2-5.4); Lymphocytes % (Auto) 26.7 % (13.4-35.0); Mean Corpuscular HGB Conc 32 % (30-34); Mean Corpuscular Volume 74 fl (79-97); Monocytes # (Auto) 0.4 K/mm3 (0.0-0.8); Monocytes % (Auto) 8.2 % (0.0-7.3); Platelet Count 353 K/mm3 (140-440); Red Blood Count 4.83 M/mm3 (3.65-5.03)
[2020-11-06 13:00] LABS: Alanine Aminotransferase 9 units/L (7-56); Albumin 4.2 g/dL (3.9-5); Blood Urea Nitrogen 8 mg/dL (7-17); Calcium 8.9 mg/dL (8.4-10.2); Hemolysis Index 5
[2020-11-06 13:01] LABS: BUN/Creatinine Ratio 13
--- NOTE | 2020-11-06 13:55 | Cat Scan Report ---
CT abdomen pelvis w con INDICATION / CLINICAL INFORMATION: Right lower quadrant pain, nausea, upper abdominal pain.. TECHNIQUE: Axial CT imaging of abdomen and pelvis was obtained with IV contrast. Coronal and sagittal reformatte d imaging obtained and reviewed. All CT scans at this location are performed using CT dose reduction for ALARA by means of automated exposure control. COMPARISON: None available. FINDINGS: CT abdomen with contrast demonstrates normal appearance of the liver, spleen, pancreas, kidneys, and adrenal glands. Gallbladder is present and is grossly unremarkable. No hydronephrosis or renal mass p resent. CT pelvis with contrast demonstrates a normal appendix in the right mid abdomen in a retrocecal posit ion. There is an enhancing cyst within the right ovary measuring 2.9 cm. The appearance is most consi stent with corpus luteal cyst from recent ovulation. Trace amount of free fluid is present in the pos terior pelvis. Additionally, there are mildly prominent fluid-filled small bowel loops within the abdomen and pelvis with an appearance most suggestive of enteritis, if clinical symptoms correlate. The remainder of th e GI tract is unremarkable. Visualized lung bases are clear. No significant acute osseous abnormality noted. IMPRESSION: 1. Slightly prominent fluid-filled small bowel loops. The appearance is most suggestive of enteritis. Please correlate with clinical presentation and symptoms. 2. 2.9 cm right ovarian cyst with rim enhancement. This appearance is typical for corpus luteal cyst due to recent ovulation. Small amount of associated free fluid. 3. Normal appearance of the appendix. Signer Name: Amarilys Blanco MD Signed: 11/06/2020 1:51 PM Workstation Name: [id number]
[2020-11-06 14:51] LABS: Bilirubin,Urine NEG (Negative); Blood,Urine NEG (Negative); Color,Urine Yellow (Yellow); Hyaline Casts,Urine 1 /LPF; Mucus,Urine FEW /HPF; Protein,Urine <15 mg/dL mg/dL (Negative); Urobilinogen,Urine < 2.0 mg/dL (<2.0)
== END 2020-11-06 15:30 | disposition home or self-care (01) ==
LOC: ED 10:53
DX: N83.209 Unspecified ovarian cyst, unspecified side (principal); K52.9 Noninfective gastroenteritis and colitis, unspecified; R10.84 Generalized abdominal pain; R11.10 Vomiting, unspecified; J45.909 Unspecified asthma, uncomplicated; F17.200 Nicotine dependence, unspecified, uncomplicated; Z98.890 Other specified postprocedural states; Z79.1 Long term (current) use of non-steroidal anti-inflammatories (NSAID); Z79.899 Other long term (current) drug therapy
CPT/HCPCS: 36415; 74177; 80053; 81001; 83690; 84703; 85025; 96374; 96375; 99284; C9113; J2270; J2405; Q9967

== ENCOUNTER 2020-12-21 13:04 | Emergency (ER) | payer MEDICAID ==
--- NOTE | 2020-12-21 13:20 | Event Note ---
ED Screening Note Date of service: 12/21/20 Time: 13:19 ED Screening Note: Of body aches, headache, and left flank pain x3 days Denies urinary symptoms History of right ovarian cyst Denies cough or shortness of breath This initial assessment/diagnostic orders/clinical plan/treatment(s) is/are subject to change based on patients health status, clinical progression and re- assessment by fellow clinical providers in the ED. Further treatment and workup at subsequent clinical providers discretion. Patient/guardian urged not to elope from the ED as their condition may be serious if not clinically assessed and managed. Initial orders include: Fever of 100.1 noted Labs
[2020-12-21 13:57] LABS: Hematocrit 33.8 % (30.3-42.9); Hemoglobin 10.9 gm/dl (10.1-14.3); Mean Corpuscular HGB Conc 32 % (30-34); Mean Corpuscular Volume 73 fl (79-97); Platelet Count 317 K/mm3 (140-440); Red Blood Count 4.62 M/mm3 (3.65-5.03); Red Cell Distribution Width 16.7 % (13.2-15.2)
[2020-12-21 14:20] LABS: Alanine Aminotransferase 6 units/L (7-56); Albumin 3.9 g/dL (3.9-5); Blood Urea Nitrogen 6 mg/dL (7-17); Calcium 8.9 mg/dL (8.4-10.2); Hemolysis Index 8
[2020-12-21 14:25] LABS: BUN/Creatinine Ratio 9
[2020-12-21] MEDS ORDERED: SODIUM CHLORIDE 0.9% 1000 ML 1,000 ML IV ONE (14:49)
[2020-12-21] MEDS ORDERED: KETOROLAC 30 MG/1 ML INJ IV ONE (14:49)
[2020-12-21 14:50] LABS: Total Cells Counted 100
[2020-12-21 14:51] LABS: Hypochromasia 1+
[2020-12-21 14:52] LABS: Ovalocytes Rare
--- NOTE | 2020-12-21 14:53 | Emergency Department Report ---
ED Abdominal Pain HPI - General Chief Complaint: Abdominal Pain Stated Complaint: HEAD/BODY ACHES Time Seen by Provider: 12/21/20 13:18 Source: patient Mode of arrival: Ambulatory Limitations: No Limitations - History of Present Illness Initial Comments: 30-year-old female presents to the ER today with complaints of left flank pain. Patient states that her symptoms started gradually about 2 days ago. Is been constant and nonradiating. She reports associated left upper quadrant abdominal pain. She denies any associated nausea, vomiting, diarrhea or constipation. Her last bowel movement was yesterday. She denies any dysuria, hematuria or any other UTI symptoms. Her last menstrual cycle was about 2 weeks ago. She denies any abnormal vaginal bleeding or discharge. She denies similar pain in the past. She denies any URI symptoms, cough or shortness of breath. MD Complaint: flank pain -: Gradual, days(s) (2) Location: L flank Severity scale (0 -10): 10 - Related Data Previous Rx's Medication Instructions Recorded Last Taken Type Acetaminophen/Codeine [Tylenol 1 tab PO Q4HR PRN #12 tablet 12/21/20 Unknown Rx /Codeine # 3 tab] Ketorolac [Toradol] 10 mg PO Q6H PRN #20 tablet 12/21/20 Unknown Rx Ondansetron [Zofran Odt] 4 mg PO Q8HR PRN #15 tab.rapdis 12/21/20 Unknown Rx cephALEXin [Keflex] 500 mg PO Q6HR #40 capsule 12/21/20 Unknown Rx Allergies Allergy/AdvReac Type Severity Reaction Status Date / Time No Known Allergies Allergy Verified 12/21/20 13:17 ED Review of Systems ROS: Stated complaint: HEAD/BODY ACHES Other details as noted in HPI Comment: All other systems reviewed and negative Constitutional: no symptoms reported Eyes: denies: eye pain, eye discharge, vision change ENT: denies: ear pain, throat pain Respiratory: denies: cough, shortness of breath, SOB with exertion, SOB at rest, wheezing Cardiovascular: as per HPI. denies: chest pain, palpitations, dyspnea on exertion, edema, syncope, paroxysmal nocturnal dyspnea Gastrointestinal: abdominal pain. denies: nausea, vomiting, diarrhea, constipa tion, hematemesis, melena Genitourinary: denies: urgency, dysuria, discharge Musculoskeletal: other (Left flank pain ). denies: back pain, joint swelling, arthralgia Neurological: denies: headache, weakness, numbness, paresthesias, confusion, abnormal gait, vertigo Psychiatric: denies: anxiety, depression Hematological/Lymphatic: denies: easy bleeding, easy bruising ED Past Medical Hx - Past Medical History Hx Hypertension: No Hx Heart Attack/AMI: No Hx Congestive Heart Failure: No Hx Diabetes: No Hx Deep Vein Thrombosis: No Hx Liver Disease: No Hx Renal Disease: No Hx Sickle Cell Disease: No Hx Seizures: No Hx Asthma: Yes (no present meds) Hx COPD: No Hx HIV: No Additional medical history: Ovarian cysts - Surgical History Past Surgical History?: Yes Hx Pacemaker: No Hx Internal Defibrillator: No Additional Surgical History: c section X 4 - Social History Smoking Status: Current Some Day Smoker Substance Use Type: None - Medications Home Medications: Home Medications Medication Instructions Recorded Confirmed Last Taken Type Acetaminophen/Codeine [Tylenol 1 tab PO Q4HR PRN #12 tablet 12/21/20 Unknown Rx /Codeine # 3 tab] Ketorolac [Toradol] 10 mg PO Q6H PRN #20 tablet 12/21/20 Unknown Rx Ondansetron [Zofran Odt] 4 mg PO Q8HR PRN #15 tab.rapdis 12/21/20 Unknown Rx cephALEXin [Keflex] 500 mg PO Q6HR #40 capsule 12/21/20 Unknown Rx ED Physical Exam - General Limitations: No Limitations General appearance: alert, in no apparent distress, other (appears uncomfortable and midly ill appearing) - Head Head exam: Present: atraumatic, normocephalic, normal inspection - Eye Eye exam: Present: normal appearance, PERRL, EOMI Pupils: Present: normal accommodation - Respiratory Respiratory exam: Present: normal lung sounds bilaterally. Absent: respiratory distress - Cardiovascular Cardiovascular Exam: Present: regular rate, normal rhythm, normal heart sounds - GI/Abdominal GI/Abdominal exam: Present: soft, tenderness (Mild ttp LUQ without guarding or rebound). Absent: distended - Back Exam Back exam: Present: normal inspection, full ROM, CVA tenderness (L) (mild ) - Neurological Exam Neurological exam: Present: alert, oriented X3, CN II-XII intact, normal gait - Psychiatric Psychiatric exam: Present: normal affect, normal mood - Skin Skin exam: Present: intact ED Course Vital Signs 12/21/20 12/21/20 12/21/20 13:17 15:18 16:09 Temperature 100.1 F H Pulse Rate 91 H Respiratory 16 18 20 Rate Blood Pressure 122/66 [Right] O2 Sat by Pulse 97 Oximetry 12/21/20 16:32 Temperature 99.8 F H Pulse Rate 88 Respiratory 20 Rate Blood Pressure 124/68 [Right] O2 Sat by Pulse 99 Oximetry ED Medical Decision Making - Lab Data Result diagrams: 12/21/20 13:42 12/21/20 13:42 - Radiology Data Radiology results: report reviewed Patient: RISHI BALDWIN MR#: [id number] : 1990 Acct:[id number] Age/Sex: 30 / F ADM Date: 12/21/20 Loc: ED Attending Dr: Ordering Physician: CORBY ELLIS Date of Service: 12/21/20 Procedure(s): XR chest routine 2V Accession Number(s): [id number] cc: CORBY ELLIS Fluoro Time In Minutes: CHEST 2 VIEWS INDICATION / CLINICAL INFORMATION: left flank pain/fever. COMPARISON: 05/11/2020 FINDINGS: SUPPORT DEVICES: None. HEART / MEDIASTINUM: No significant abnormality. LUNGS / PLEURA: No significant pulmonary or pleural abnormality. No p neumothorax. ADDITIONAL FINDINGS: No significant additional findings. IMPRESSION: 1. No acute findings. Signer Name: Rodney Brown MD Signed: 12/21/2020 3:13 PM Workstation Name: [id number] Transcribed By: RH Dictated By: RODNEY BROWN III Electronically Authenticated By: RODNEY BROWN III Signed Date/Time: 12/21/201512 DD/ 12 TD/TT: Patient: RISHI BALDWIN MR#: [id number] : 1990 Acct:[id number] Age/Sex: 30 / F ADM Date: 12/21/20 Loc: ED Attending Dr: Ordering Physician: CORBY ELLIS Date of Service: 12/21/20 Procedure(s): CT abdomen pelvis w con Accession Number(s): [id number] cc: CORBY CHENMLEY CT ABDOMEN AND PELVIS WITH CONTRAST HISTORY: Left flank pain COMPARISON: 11/06/2020 TECHNIQUE: Axial CT images were obtained through the abdomen and pelvis after 100 cc of IV contrast. Sagittal and coronal reformatted images. All CT scans at this location are performed using CT dose reduction for ALARA by means of automated exposure control. FINDINGS: CT ABDOMEN: Lung Bases: Clear. Liver: No significant abnormality. Biliary: No significant abnormality. Spleen: No significant abnormality. Unenlarged. Pancreas: No significant abnormality. Adrenals: No significant abnormality. Kidneys: No significant abnormality. Lymphatics: No lymphadenopathy. Vasculature: No significant abnormality. Bowel/Peritoneum: No significant abnormality. No free air. No free fluid. Normal appendix. CT PELVIS: : A 1.8 cm right ovarian cyst is identified. The uterus, left ovary and bladder are unremarkable. Osseous Structures: No significant abnormality. Additional Findings: None IMPRESSION: 1.8 cm right ovarian cyst. No clear explanation for left flank pain. Signer Name: Ab Barboza Jr, MD Signed: 12/21/2020 3:42 PM Workstation Name: [id number] Transcribed By: TTR Dictated By: AB BARBOZA JR, MD Electronically Authenticated By: AB BARBOZA JR, MD Signed Date/Time: 12/21/20 1542 DD/ 1537 TD/TT: - Medical Decision Making 1634: Patient currently resting comfortably. She reports some improvement of her pain after meds. She is currently not toxic or ill appearing and in no distress. Labs reviewed, UA is concerning for UTI, urine culture pending. HCG negative. CT abd pelvis shows nothing acute. cxr normal. Repeat VS improved and stable. There is no indication for further testing, admission, or emergent consult at this time. Discussed lab/imaging results, suspected dx and tx plan with patient. Patient expressed understanding of instructions and agreed with plan. She was d/c in stable condition. Critical care attestation.: If time is entered above; I have spent that time in minutes in the direct care of this critically ill patient, excluding procedure time. ED Disposition Clinical Impression: UTI (urinary tract infection) Disposition: DC-01 TO HOME OR SELFCARE Is pt being admited?: No Does the pt Need Aspirin: No Condition: Stable Instructions: Urinary Tract Infection, Adult, [id number], Abdominal Pain (ED) Additional Instructions: Take the keflex to completion. Take the toradol and the tylenol 3 as prescribed. Drink lots of water. Follow up with PCP listed on your discharge instructions. Return to ED if symptoms changes or worsens in anyway. Prescriptions: cephALEXin [Keflex] 500 mg PO Q6HR #40 capsule Ketorolac [Toradol] 10 mg PO Q6H PRN #20 tablet PRN Reason: Pain Acetaminophen/Codeine [Tylenol /Codeine # 3 tab] 1 tab PO Q4HR PRN #12 tablet PRN Reason: Pain Ondansetron [Zofran Odt] 4 mg PO Q8HR PRN #15 tab.rapdis PRN Reason: Nausea Referrals: MARGIE ARAIZA MD [Staff Physician] - 3-5 Days Forms: Work/School Release Form(ED) Time of Disposition: 16:28
[2020-12-21 14:54] LABS: Platelet Estimate Consistent w Auto; Schistocytes Rare
[2020-12-21 14:55] LABS: Bilirubin,Urine NEG (Negative); Blood,Urine NEG (Negative); Color,Urine Yellow (Yellow); Mucus,Urine 2+ /HPF
--- NOTE | 2020-12-21 15:18 | XRay Report ---
CHEST 2 VIEWS INDICATION / CLINICAL INFORMATION: left flank pain/fever. COMPARISON: 05/11/2020 FINDINGS: SUPPORT DEVICES: None. HEART / MEDIASTINUM: No significant abnormality. LUNGS / PLEURA: No significant pulmonary or pleural abnormality. No pneumothorax. ADDITIONAL FINDINGS: No significant additional findings. IMPRESSION: 1. No acute findings. Signer Name: Charlie Brown MD Signed: 12/21/2020 3:13 PM Workstation Name: [id number]
[2020-12-21] MEDS ORDERED: cefTRIAXone/NS 1 GM/50 ML 1 GM/50 ML BAG IV ONE (15:28)
--- NOTE | 2020-12-21 15:46 | Cat Scan Report ---
CT ABDOMEN AND PELVIS WITH CONTRAST HISTORY: Left flank pain COMPARISON: 11/06/2020 TECHNIQUE: Axial CT images were obtained through the abdomen and pelvis after 100 cc of IV contrast. Sagittal and coronal reformatted images. All CT scans at this location are performed using CT dose re duction for ALARA by means of automated exposure control. FINDINGS: CT ABDOMEN: Lung Bases: Clear. Liver: No significant abnormality. Biliary: No significant abnormality. Spleen: No significant abnormality. Unenlarged. Pancreas: No significant abnormality. Adrenals: No significant abnormality. Kidneys: No significant abnormality. Lymphatics: No lymphadenopathy. Vasculature: No significant abnormality. Bowel/Peritoneum: No significant abnormality. No free air. No free fluid. Normal appendix. CT PELVIS: : A 1.8 cm right ovarian cyst is identified. The uterus, left ovary and bladder are unremarkable. Osseous Structures: No significant abnormality. Additional Findings: None IMPRESSION: 1.8 cm right ovarian cyst. No clear explanation for left flank pain. Signer Name: Ab Barboza Jr, MD Signed: 12/21/2020 3:42 PM Workstation Name: [id number]
[2020-12-21] MEDS ORDERED: HYDROcodone/ACETAMINOPHEN 5-325 MG TAB PO ONE (16:00)
[2020-12-21 16:33] VITALS: BP 124/68
== END 2020-12-21 16:56 | disposition home or self-care (01) ==
LOC: ED 13:04
DX: N39.0 Urinary tract infection, site not specified (principal); F17.200 Nicotine dependence, unspecified, uncomplicated; Z79.899 Other long term (current) drug therapy
CPT/HCPCS: 36415; 71046; 74177; 80053; 81001; 83690; 84703; 85007; 85025; 87086; 96361; 96365; 96375; 99284; J0696; J1885; J7030; Q9967

== ENCOUNTER 2021-05-17 13:46 | Emergency (ER) | payer MEDICAID | END 2021-05-17 17:18 | LOC: ED 13:46 | DX: J02.9 Acute pharyngitis, unspecified (principal); Z53.21 Procedure and treatment not carried out due to patient leaving prior to being seen by health care provider ==

== ENCOUNTER 2021-09-01 12:23 | Emergency (ER) | payer MEDICAID ==
--- NOTE | 2021-09-01 13:07 | Emergency Department Report ---
ED ENT HPI - General Chief complaint: Sore Throat Stated complaint: SORE THROAT Time Seen by Provider: 09/01/21 12:59 Source: patient Mode of arrival: Ambulatory Limitations: No Limitations - History of Present Illness Initial comments: The patient was evaluated in the emergency department for symptoms described in the history of present illness. He/she was evaluated in the context of the global COVID-19 pandemic, which necessitated consideration that the patient might be at risk for infection with the virus that causes COVID-19. Institutional protocols and algorithms that pertain to the evaluation of patients at risk for COVID-19 are in a state of rapid change based on information released by regulatory bodies including the CDC and federal and state organizations. These policies and algorithms were followed during the patient's care in the emergency department. Please note that these policies, procedures and recommendations changed on a rapid basis. 30-year-old -[place] female presents to the emergency room for 2-day history of a sore throat. Patient is taken nothing for her pain. She states that it is mild on the day gets worse at night. She denies any fever no chills no nausea no vomiting no chest pain or shortness of breath. She has not been tested for Covid since July and has not been vaccinated. Patient last menstrual period is 08/12/2021. Denies any past medical history currently takes no meds on a daily basis and no known drug allergies. MD complaint: sore throat Onset/Timin -: days(s) Location: throat Severity: mild Severity scale (0 -10): 4 Improves with: none Worsens with: swallowing Associated Symptoms: pain with swallowing, sore throat. denies: fever, cough, g um swelling, toothache, tinnitus, hearing loss - Related Data Previous Rx's Medication Instructions Recorded Last Taken Type Acetaminophen/Codeine [Tylenol 1 tab PO Q4HR PRN #12 tablet 12/21/20 Unknown Rx /Codeine # 3 tab] Ketorolac [Toradol] 10 mg PO Q6H PRN #20 tablet 12/21/20 Unknown Rx Ondansetron [Zofran Odt] 4 mg PO Q8HR PRN #15 tab.rapdis 12/21/20 Unknown Rx cephALEXin [Keflex] 500 mg PO Q6HR #40 capsule 12/21/20 Unknown Rx Allergies Allergy/AdvReac Type Severity Reaction Status Date / Time No Known Allergies Allergy Verified 12/21/20 13:17 ED Dental HPI - General Chief complaint: Sore Throat Stated complaint: SORE THROAT Time Seen by Provider: 09/01/21 12:59 Source: patient Mode of arrival: Ambulatory Limitations: No Limitations - Related Data Previous Rx's Medication Instructions Recorded Last Taken Type Acetaminophen/Codeine [Tylenol 1 tab PO Q4HR PRN #12 tablet 12/21/20 Unknown Rx /Codeine # 3 tab] Ketorolac [Toradol] 10 mg PO Q6H PRN #20 tablet 12/21/20 Unknown Rx Ondansetron [Zofran Odt] 4 mg PO Q8HR PRN #15 tab.rapdis 12/21/20 Unknown Rx cephALEXin [Keflex] 500 mg PO Q6HR #40 capsule 12/21/20 Unknown Rx Allergies Allergy/AdvReac Type Severity Reaction Status Date / Time No Known Allergies Allergy Verified 12/21/20 13:17 ED Review of Systems ROS: Stated complaint: SORE THROAT Other details as noted in HPI Comment: All other systems reviewed and negative ED Past Medical Hx - Past Medical History Hx Hypertension: No Hx Heart Attack/AMI: No Hx Congestive Heart Failure: No Hx Diabetes: No Hx Deep Vein Thrombosis: No Hx Liver Disease: No Hx Renal Disease: No Hx Sickle Cell Disease: No Hx Seizures: No Hx Asthma: Yes (no present meds) Hx COPD: No Hx HIV: No Additional medical history: Ovarian cysts - Surgical History Hx Pacemaker: No Hx Internal Defibrillator: No Additional Surgical History: c section X 4 - Social History Smoking Status: Current Some Day Smoker Substance Use Type: None - Medications Home Medications: Home Medications Medication Instructions Recorded Confirmed Last Taken Type Acetaminophen/Codeine [Tylenol 1 tab PO Q4HR PRN #12 tablet 12/21/20 Unknown Rx /Codeine # 3 tab] Ketorolac [Toradol] 10 mg PO Q6H PRN #20 tablet 12/21/20 Unknown Rx Ondansetron [Zofran Odt] 4 mg PO Q8HR PRN #15 tab.rapdis 12/21/20 Unknown Rx cephALEXin [Keflex] 500 mg PO Q6HR #40 capsule 12/21/20 Unknown Rx ED Physical Exam - General Limitations: No Limitations General appearance: alert, in no apparent distress - Head Head exam: Present: atraumatic, normocephalic - Eye Eye exam: Present: normal appearance - ENT ENT exam: Present: normal orophraynx, mucous membranes moist, normal external ear exam - Expanded ENT Exam Expanded Throat exam: Positive: tonsillar erythema. Negative: tonsillomegaly, tonsillar exudate, R peritonsillar mass, L peritonsillar mass - Neck Neck exam: Present: normal inspection, full ROM. Absent: lymphadenopathy - Respiratory Respiratory exam: Present: normal lung sounds bilaterally. Absent: respiratory distress, accessory muscle use - Cardiovascular Cardiovascular Exam: Present: regular rate - Extremities Exam Extremities exam: Present: normal inspection - Back Exam Back exam: Present: normal inspection - Neurological Exam Neurological exam: Present: alert, oriented X3, normal gait - Psychiatric Psychiatric exam: Present: normal affect, normal mood - Skin Skin exam: Present: warm, dry, intact, normal color. Absent: rash ED Course Vital Signs 09/01/21 12:26 Temperature 98.4 F Pulse Rate 71 Respiratory 15 Rate Blood Pressure 109/70 O2 Sat by Pulse 99 Oximetry ED Medical Decision Making - Medical Decision Making 30-year-old -[place] female presents to the emergency room for 2-day history of a sore throat. Patient is taken nothing for her pain. She states that it is mild on the day gets worse at night. She denies any fever no chills no nausea no vomiting no chest pain or shortness of breath. She has not been tested for Covid since July and has not been vaccinated. Patient last menstrual period is 08/12/2021. Denies any past medical history currently takes no meds on a daily basis and no known drug allergies. rapid strep obtained by provider and sent to the lab by provider. Strep test is negative. Patient be discharged home instructed to take Tylenol ibuprofen. Critical care attestation.: If time is entered above; I have spent that time in minutes in the direct care of this critically ill patient, excluding procedure time. ED Disposition Clinical Impression: Sore throat (viral) Disposition: 01 HOME / SELF CARE / HOMELESS Is pt being admited?: No Does the pt Need Aspirin: No Condition: Stable Instructions: Sore Throat, [id number] Additional Instructions: Strep test is negative which means you do not need antibiotics. Tylenol ibuprofen and increase your fluid intake. Referrals: Your, primary care provider [Other] - 3-5 Days Forms: Work/School Release Form(ED) Time of Disposition: 13:39
[2021-09-01 14:07] VITALS: BP 108/68
== END 2021-09-01 14:07 | disposition home or self-care (01) ==
LOC: ED 12:23
DX: J02.8 Acute pharyngitis due to other specified organisms (principal); B97.89 Other viral agents as the cause of diseases classified elsewhere; Z79.899 Other long term (current) drug therapy
CPT/HCPCS: 87116; 87430; 99283